=== PATIENT | male | born 2000 | race Caucasian/White ===

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

== ENCOUNTER 2022-08-04 14:01 | Emergency (ER) | payer BC, OTHER, SELFPAY ==
[2022-08-04 14:29] VITALS: BP 122/57; PULSE 118; RESP 18; TEMP 37.7; O2SAT 96
[2022-08-04 15:15] LABS: Influenza A QL RT-PCR Positive (Negative); Influenza B QL RT-PCR Negative (Negative); RSV RNA, RT-PCR Negative (Negative); SARS-CoV-2 RNA PCR Negative
[2022-08-04 15:45] VITALS: O2SAT 96
[2022-08-04 15:46] VITALS: BP 135/70; PULSE 109; RESP 18; O2SAT 96
--- NOTE | 2022-08-04 15:55 | ED.GENADULT ---
HPI - General Adult General Chief complaint: Upper Respiratory Infection Stated complaint: throat hurting, fever, weakness Time Seen by Provider: 08/04/22 15:46 History of Present Illness HPI narrative: 21-year-old male with no past medical history presented with sore throat, subjective fever chills, nasal congestion. Per patient he has been having subjective subjective fevers, chills, sore throat, nonproductive cough, myalgias for the past 4 days. He continues to feel unwell so he presented to the ED for further evaluation. He denied chest pain, shortness of breath, nausea, vomiting, diarrhea, dysuria. Past medical history: Denied Past surgical history: Denied Medications: Denied Allergies: No known drug allergies Social: Denied active smoking, alcohol, recreational drugs Related Data Allergies Allergy/AdvReac Type Severity Reaction Status Date / Time No Known Allergies Allergy Verified 11/27/19 03:07 Review of Systems Review of Systems: See HPI PMFSH Past Medical History Medical History Patient denies medical problems Social History Social History Smoking status: Never smoker Gender identity (if verbalized by the patient): Male Comments See HPI Exam Narrative: APPEARANCE: Alert, calm and cooperative, no acute distress, phonating, sitting comfortably during visit HEAD: atraumatic EYES: Pupils equal round an reactive to light, extra ocular movements intact, no conjunctival injection NOSE: Normal no drainage NECK: Bilateral tonsillitis, no orpharyngeal swelling, uvula midline, Supple, without meningismus RESPIRATORY: Lungs clear to auscultation bilaterally, no wheezes/rales/rhonchi, breathing comfortably CARDIOVASCULAR: Regular rate and rhythm, no visible jugular venous distension ABDOMINAL: Soft, nontender, nondistended, no guarding, no rebound/peritoneal signs, no costovertebral tenderness to palpation BACK: no midline tenderness to palpation, no step offs EXTREMITIES: No edema, palpable peripheral pulses, warm, well perfused, no tenderness to bilateral calves. NEURO: Alert, moving all extremities symmetrically SKIN:: Warm, dry. Normal color PSYCHIATRIC: Normal affect/mood Course Vital Signs Vital signs: Vital Signs Temperature 99.9 F H 08/04/22 14:29 Pulse Rate 118 H 08/04/22 14:29 Respiratory Rate 18 12/26/22 14:29 Blood Pressure 122/57 L 08/04/22 14:29 Pulse Oximetry 96 08/04/22 14:29 Oxygen Delivery Room Air 08/04/22 14:29 Temperature 99.9 F H 08/04/22 14:29 Pulse Rate 109 H 08/04/22 15:46 Respiratory Rate 18 08/04/22 15:46 Blood Pressure 135/70 08/04/22 15:46 Pulse Oximetry 96 08/04/22 15:46 Oxygen Delivery Room Air 08/04/22 15:45 Medical Decision Making MDM Narrative Medical decision making narrative: Medical Decision Making 21-year-old male no past medical history presenting with myalgias, subjective fevers chills, nasal congestion, nonproductive cough for the last 4 days. Denied chest pain or shortness of breath. Physical exam benign, tonsillitis, oropharynx clear, well appearing, breathing comfortably, vitals noted for low-grade fever and tachycardia. Patient noted to be influenza A positive. Discussion held about benefits and disadvantage of Tamiflu, currently he is able to take NSAIDs, Tylenol, and increase oral hydration. Patient agreeable to plan Impression: History and exam suggestive of viral URI secondary to influenza A. Pneumonia versus pericarditis considered, unlikely at this time. The patient tolerated oral intake, is alert and oriented, speaking with clear speech, ambulated with steady gait, and has remained hemodynamically stable throughout the ED visit. He has close follow up with his primary care provider. Areas of diagnostic uncertainty discussed and strict return precautions shared with patient; encouraged to return to the emergen
[2022-08-04 16:50] VITALS: BP 138/75; PULSE 93; RESP 18; O2SAT 95
== END 2022-08-04 16:51 | disposition home or self-care (01) ==
LOC: ANHED 16:22
PROVIDERS: Emergency Medicine; Emergency Provider Emergency Medicine
DX: J10.1 Influenza due to other identified influenza virus with other respiratory manifestations (principal); Z20.822 Contact with and (suspected) exposure to COVID-19
CPT/HCPCS: 87637; 99283